=== PATIENT | male | born 1985 | race Caucasian/White ===

== ENCOUNTER 2016-12-29 20:42 | Emergency (ER) | payer SELFPAY ==
[~2016-12-29] VITALS: Ht 177.8 cm; Wt 94.0 kg
[~2016-12-29 20:42] MED LIST: LORTA5 PO; MEDR4PAK3 PO; ORPH100T PO; Z.0.NO CURRENT MEDS
[2016-12-29 21:21] VITALS: BP 134/96; PULSE 101; RESP 18; TEMP 99; O2SAT 100
== END 2016-12-30 00:03 | disposition left against medical advice (07) ==
LOC: PHED 20:42
DX: M54.2 Cervicalgia (principal)
CPT/HCPCS: 99281